=== PATIENT | male | born 1930 | race Caucasian/White ===

== ENCOUNTER → 2016-12-26 | Day surgery (SDC) | payer OTHER, MEDICARE ==
[~2016-12-26] VITALS: Ht 167.6 cm; Wt 48.1 kg
--- NOTE | 2016-12-27 11:53 | RADIOLOGY REPORT ---
EXAMINATION: Intraoperative fluoroscopy CLINICAL INFORMATION: Right leg arteriogram COMPARISON: None. TECHNIQUE: Intraoperative fluoroscopy was provided for use by Dr. Luciano. A total of 8 angiograms were saved to PACS. TOTAL FLUOROSCOPIC TIME: 10 minutes and 44 seconds FINDINGS\E\IMPRESSION: Intraoperative fluoroscopy provided for use by Dr. Luciano. Please see operative note for detailed findings.
--- NOTE | 2016-12-30 17:33 | Operative Report ---
Operative/Inv Procedure Report Surgery Date: 12/26/16 Name of Procedure: -Ultrasound-guided left common femoral artery access -Aortogram -Third order left leg angiogram Pre-Operative Diagnosis: Right toe gangrene Post-Operative Diagnosis: Same Estimated Blood Loss: scant Surgeon/Glass Fitter: RENATA LEOS MD Anesthesia: moderate sedation Operative/Procedure Note Note: 86-year-old man with gangrene of the right first and second toe underwent right leg angiogram on 11/28/2016. At that time, access to Crosser was not available. For limb salvage purposes, the patient was scheduled for another angiogram with possible intervention using Crosser in order to save his foot. An informed consent was obtained. Patient was taken to the operating room and placed supine on the table. A timeout was called according to protocol. After satisfactory induction of anesthesia, the patient was prepped and draped in standard surgical fashion. Using an ultrasound, left common femoral artery was accessed using micropuncture technique. A Skyfiber wire was advanced into the aorta under direct for scopic guidance. The micropuncture sheath was exchanged with a short 5 [place] sheath. An Omni flush catheter was advanced over the wire and placed in abdominal aorta. From this position, an aortogram was performed with findings outlined below. Then using the Omni flush catheter and Glidewire, right iliac artery system was selected. The wire was advanced into the proximal right common femoral artery. The Omni flush catheter was exchanged with a glide catheter which was advanced over the wire and placed into the proximal right common femoral artery. From this position, right leg angiogram was performed with findings outlined below. Then with glide wire and glide catheter, proximal right SFA was selected. From this position, right leg injured Jose Alberto was performed with findings outlined below. Unfortunately, the dorsalis pedis artery did not reconstitute as previously was expected. There was a small collateral vessel the proximal foot which as mentioned did not reconstitute into dorsalis pedis. For this reason, an option was not possible at this was a last ditch effort for limb salvage. Wires and catheters were removed. The puncture site was then closed with Exoseal device. 5 minutes of manual pressure was applied. Sterile dressing was then applied. The patient was taken to the recovery room in stable condition. Radiographic findings: Patent aorta with tortuosity in the distal segment. Bilateral common iliac and external iliac arteries are patent with no significant disease. Both of these arteries are tortuous. Bilateral hypogastric arteries are patent. Right common femoral artery is patent. There is atherosclerotic disease in the distal segment. Right profunda is patent from its origin with moderate to severe disease. Right SFA and says SFA stents are patent. There is moderate diffuse disease in the SFA. Popliteal artery is patent with mild disease. Tibial peroneal trunk is patent. Anterior tibial artery is patent from its origin with moderate disease but shortly thereafter occludes and does not reconstitute. Posterior tibial artery and peroneal arteries are occluded. There are extensive collaterals in the leg.
== END ==
LOC: STS 01:06
DX: I77.1 Stricture of artery (principal); I70.262 Atherosclerosis of native arteries of extremities with gangrene, left leg; I48.91 Unspecified atrial fibrillation; Z79.01 Long term (current) use of anticoagulants; M06.9 Rheumatoid arthritis, unspecified; Z86.73 Personal history of transient ischemic attack (TIA), and cerebral infarction without residual deficits
CPT/HCPCS: 73590-RT; C1725; C1760; J1644; Q9967